=== PATIENT | female | born 1995 | race Caucasian/White ===

== ENCOUNTER 2017-12-07 19:36 | Emergency (ER) | payer OTHER ==
[~2017-12-07] VITALS: Ht 170.2 cm; Wt 77.1 kg
[2017-12-07] MEDS ORDERED: birth control (19:48)
[2017-12-07] MEDS ORDERED: ROBAXIN 750 MG750 M1 (19:52)
[2017-12-07] MEDS ORDERED: ROBAXIN500 MG PO (21:43)
[2017-12-07 21:57] VITALS: BP 103/68
== END 2017-12-07 21:58 | disposition home or self-care (01) ==
LOC: M.ERS 19:36
DX: S16.1XXA Strain of muscle, fascia and tendon at neck level, initial encounter (principal); S20.212A Contusion of left front wall of thorax, initial encounter; Z88.1 Allergy status to other antibiotic agents; V49.59XA Passenger injured in collision with other motor vehicles in traffic accident, initial encounter; Y93.89 Activity, other specified; Y92.410 Unspecified street and highway as the place of occurrence of the external cause; Y99.8 Other external cause status